=== PATIENT | female | born 1950 ===

== ENCOUNTER 2019-09-21 13:20 | Outpatient (CLI) | payer OTHER | END 2019-09-21 13:21 | disposition home or self-care (01) | LOC: MAMO-SONO 13:20 | DX: Z12.31 Encounter for screening mammogram for malignant neoplasm of breast (principal); Z87.898 Personal history of other specified conditions; R92.8 Other abnormal and inconclusive findings on diagnostic imaging of breast; Z12.39 Encounter for other screening for malignant neoplasm of breast ==

== ENCOUNTER 2023-04-11 11:41 | Outpatient (CLI) | payer OTHER | END 2023-04-11 12:02 | disposition home or self-care (01) | LOC: MRI 11:41 | DX: M54.10 Radiculopathy, site unspecified (principal); M54.16 Radiculopathy, lumbar region | CPT/HCPCS: 72146; 72148 ==